=== PATIENT | female | born 2000 | race African-American/Black ===

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

== ENCOUNTER 2022-07-23 14:20 | Emergency (ER) | payer MEDICAID ==
[~2022-07-23] VITALS: Ht 165 cm; Wt 59.0 kg
[~2022-07-23 14:20] MED LIST changes: +ACHD5005 PO; +DOCU100C37 PO; +IBUP-844 PO; +POLY10DR31 OP
--- NOTE | 2022-07-23 15:50 | Diagnostic Imaging Report ---
Foot, right, 3 view. INDICATION: Left lateral foot pain. COMPARISON: None available. TECHNIQUE: 3 views of the right foot. FINDINGS: No acute or healing fracture. No feature of metatarsal stress fracture. Alignment is normal. Achilles shadow is normal as well. IMPRESSION: No acute osseous abnormality in the left foot. Dictated by: Dictated on workstation # [id number]
--- NOTE | 2022-07-23 16:26 | ED Lower Extremity ---
General Chief Complaint: Lower Extremity Stated Complaint: RIGHT FOOT PAIN/PINKY TOE Nursing Triage Note: pt states she tripped and felt 10-15 pops in her R pinky toe last night, states pain and redness and unable to bear weight on it History of Present Illness Date Seen by Provider: Jul 23, 2022 Time Seen by Provider: 15:10 Initial Comments Patient is a 22 yo F who presents to the ED with R fifth toe and lateral foot pain after tripping last night and getting her toe caught on the edge of the carpet. Patient states the pain is worse with walking or bearing weight. She has not taken medications for the symptoms today. Onset: yesterday Pain/Injury Location: right foot, right 5th toe Allergies and Home Medications Allergies Coded Allergies: No Known Drug Allergies (Unverified , 04/01/11) Patient Home Medication List Home Medication List Reviewed: Yes Docusate Sodium (Docusate Sodium) 100 Mg Capsule, 100 MG PO BID PRN for CONSTIPATION-1ST LINE Prescribed by: TRAVIS AZEVEDO on 10/06/19728 Hydrocodone Bit/Acetaminophen (Lortab 5 Mg Tablet) 1 Tab Tab, 1-2 TAB PO Q6HR PRN for PAIN-MODERATE (5-7) Prescribed by: TRAVIS AZEVEDO on 10/06/19728 Ibuprofen (Ibu) 600 Mg Tablet, 600 MG PO Q6HR Prescribed by: TRAVIS AZEVEDO on 10/06/19728 Polymyxin B Sulf/Trimethoprim (Polymyxin B-Tmp Eye Drops) 10 Ml Drops, 1 DROP OP QID, (Reported) Entered as Reported by: MIRA GATICA on 10/04/19 184 Vit/Iron Fumarate/FA ( Tablet) 1 Each Tablet, 1 EACH PO DAILY, (Reported) Entered as Reported by: MARTÍN CONDE on 09/25/19 182 Review of Systems Constitutional: no symptoms reported EENTM: no symptoms reported Respiratory: no symptoms reported Cardiovascular: no symptoms reported Gastrointestinal: no symptoms reported Genitourinary: no symptoms reported Musculoskeletal: see HPI Skin: no symptoms reported Psychiatric/Neurological: No Symptoms Reported Past [id number]-Pjbztc Hx Patient Social History Tobacco Use?: Yes Use of E-Cig and/or Vaping dev: Yes E-Cig or Vaping type used: Nicotine Substance use?: No Alcohol Use?: Yes Alcohol Frequency: Several times a month Pt feels they are or have been: No Immunizations Up To Date PED Vaccines UTD: Yes Seasonal Allergies Seasonal Allergies: No Past Medical History Surgeries: No Respiratory: No Cardiac: No Neurological: No Genitourinary: No Gastrointestinal: No Musculoskeletal: No Endocrine: No HEENT: No Cancer: No Psychosocial: No Integumentary: No Blood Disorders: No Adverse Reaction/Blood Tranf: No Family Medical History Patient reports no known family medical history. No Pertinent Family Hx Physical Exam Vital Signs Vital Signs - First Documented 07/23/22 15:04 Temp 37.0 Pulse 86 Resp 16 B/P (MAP) 130/80 (97) Pulse Ox 99 Capillary Refill : Less Than 3 Seconds Height, Weight, BMI Height: 5'5.00" Weight: 120lbs. oz. 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 Vital signs are reassuring. Xrays of the R foot are negative for acute osseous injury. Placed in a hard soled post op shoe and given crutches for assistance of ambulation. Will d/c home with recs for supportive care and follow-up with PCP for persistent symptoms. Return precautions for urgent symptomology discussed. Patient verbalized understanding. Departure Impression Primary Impression: Sprain of left foot Qualified Codes: S93.602A - Unspecified sprain of left foot, initial encounter Disposition: HOME, SELF-CARE Condition: Stable Departure-Patient Inst. Decision time for Depature: 16:20 Referrals: ULICES QIBAL MD (PCP/Family) Primary Care Physician Patient Instructions: Foot Sprain ED Work/School Note: Work Release Form Date Seen in the Emergency Department: Jul 23, 2022 Return to Work: Jul 25, 2022 Other Restrictions Listed Below: no prolonged standing or walking on the affected foot for 3 days DARBY GRANT APRN Jul 23, 2022 16:26
[2022-07-23 16:35] VITALS: BP 130/80
== END 2022-07-23 16:41 | disposition home or self-care (01) ==
LOC: EDUNIT# 14:20 → ER 14:22
DX: S93.602A Unspecified sprain of left foot, initial encounter (principal); F17.290 Nicotine dependence, other tobacco product, uncomplicated; Z28.310 Unvaccinated for COVID-19; W22.8XXA Striking against or struck by other objects, initial encounter
CPT/HCPCS: 73630